=== PATIENT | female | born 1970 | race Caucasian/White ===

== ENCOUNTER 2020-10-13 03:17 | Emergency (ER) | payer MEDICAID ==
[~2020-10-13] VITALS: Ht 162.6 cm; Wt 93.2 kg
[2020-10-13] MEDS ORDERED: KETOROLAC 30 MG/1 ML IM ONE (03:30)
[2020-10-13] MEDS ORDERED: KETOROLAC 30 MG/1 ML ONE (03:43)
--- NOTE | 2020-10-13 04:37 | NUR ---
PT RESTING IN BED WITH FAMILY AT PT SIDE, PT A/O X4 WITH UNLABORED EQUAL BREATHS. PT ON MONITOR WITH VSS. PT DENIED ANY CURRENT WANTS OR NEEDS.
--- NOTE | 2020-10-13 05:00 | NUR ---
PT REQ MORE PAIN MEDS AND ICE. PT PROVIDED ICE. PROVIDER NOTIFIED. PT MEDICATED PER JUL
[2020-10-13] MEDS ORDERED: HYDROmorphone 1 MG/ML, 1ML INJ ONE (05:08)
[2020-10-13 05:14] VITALS: BP 117/44
[2020-10-13] MEDS ORDERED: HYDROmorphone 1 MG/ML, 1ML INJ IM ONE (05:30)
--- NOTE | 2020-10-13 05:49 | NUR ---
RN INSTRUCTED PT HOW TO USE INCENTIVE SPIROMETER. PT USED INCENTIVE SPIROMETER MULTIPLE TIMES WITH PT REACHING 1500 TO 2000 EACH TIME.
== END 2020-10-13 05:52 | disposition home or self-care (01) ==
LOC: ED 05:29
DX: S22.32XA Fracture of one rib, left side, initial encounter for closed fracture (principal); W01.0XXA Fall on same level from slipping, tripping and stumbling without subsequent striking against object, initial encounter; Y93.89 Activity, other specified; Y92.009 Unspecified place in unspecified non-institutional (private) residence as the place of occurrence of the external cause; Y99.8 Other external cause status
CPT/HCPCS: 71101; 96372; 99284; J1170; J1885